=== PATIENT | male | born 1995 ===

== ENCOUNTER 2020-02-02 19:16 | Emergency (ER) | payer BC ==
[2020-02-02] MEDS ORDERED: LIDOCAINE 1% MPF 5 ML VIAL ONE (19:41)
--- NOTE | 2020-02-02 19:51 | ER ---
Nurse's Notes [facility] Name: Mario Swartz Age: 24 yrs Sex: Male : 1995 Arrival Date: 02/02/2020 Time: 19:17 Bed 20 Private MD: Diagnosis: Laceration left forearm Presentation: 02/01 19:22 Chief complaint: Patient states: Lac on L forearm by a knife accidentally. Bleeding ca1 controlled. Coronavirus screen: Client denies travel out of the [place] in the last 14 days. At this time, the client does not indicate any symptoms associated with coronavirus-19. Ebola Screen: Patient negative for fever greater than or equal to 101.5 degrees Fahrenheit, and additional compatible Ebola Virus Disease symptoms Patient denies exposure to infectious person. Patient denies travel to an Ebola-affected area in the 21 days before illness onset. No symptoms or risks identified at this time. Complicating Factors: There are no complicating factors for this patient. Initial Sepsis Screen: Does the patient meet any 2 criteria? No. Patient's initial sepsis screen is negative. Does the patient have a suspected source of infection? No. Patient's initial sepsis screen is negative. Risk Assessment: Do you want to hurt yourself or someone else? Patient reports no desire to harm self or others. Onset of symptoms was February 02, 2020. 19:22 Method Of Arrival: Ambulatory ca1 19:22 Acuity: JAEL 4 ca1 Triage Assessment: 19:24 General: Appears in no apparent distress. comfortable, Behavior is calm, cooperative, ca1 appropriate for age. Pain: Complains of pain in dorsal aspect of left forearm. Neuro: Level of Consciousness is awake, alert, obeys commands, Oriented to person, place, time, situation. Derm: Skin is healthy with good turgor, Skin is pink, warm \T\ dry. Musculoskeletal: Circulation, motion, and sensation intact. Capillary refill < 3 seconds. Injury Description: Laceration sustained to dorsal aspect of left forearm is clean, 0.5 to 2.5 cm long, bleeding moderately, was sustained less than 30 minutes ago. is bleeding no active bleeding noted. Historical: - Allergies: 19:24 No Known Allergies; ca1 - Home Meds: 19:24 None [Active]; ca1 - PMHx: 19:24 None; ca1 - PSHx: 19:24 Tonsillectomy; ca1 - Immunization history:: Adult Immunizations up to date, Last tetanus immunization: < 5 years ago last 2019. - Social history:: Smoking status: Patient reports use of chewing tobacco. Screenin:25 Abuse screen: Denies threats or abuse. Denies injuries from another. Nutritional ca1 screening: No deficits noted. Tuberculosis screening: No symptoms or risk factors identified. Fall Risk None identified. Assessment: 19:25 Reassessment: see triage notes. Injury Description: Laceration. ca1 19:25 Injury Description: Laceration sustained to dorsal aspect of left forearm is clean, 0.5 rr5 to 2.5 cm long, not bleeding. 20:10 Reassessment: Patient appears in no apparent distress at this time. Patient is alert, rr5 oriented x 3, equal unlabored respirations, skin warm/dry/pink. discharge instruction given and explained without complaints made. Vital Signs: 19:22 BP 135 / 100; Pulse 107; Resp 16 S; Temp 98.4(TE); Pulse Ox 99% on R/A; Weight 95.25 kg ca1 (R); Height 5 ft. 11 in. (180.34 cm) (R); 20:09 BP 122 / 87; Pulse 95; Resp 17; Pulse Ox 99% ; rr5 19:22 Body Mass Index 29.29 (95.25 kg, 180.34 cm) ca1 ED Course: 19:17 Patient arrived in ED. bp1 19:19 Spike José MD is Attending Physician. pkl 19:22 Cindy Amezcua, WIN is Primary Nurse. ca1 19:23 Triage completed. ca1 19:24 Arm band placed on right wrist. ca1 19:25 Patient has correct armband on for positive identification. Call light in reach. Side ca1 rails up X 1. Pulse ox on. NIBP on. Warm blanket given. 19:26 Patient did not have IV access during this emergency room visit. ca1 19:40 Assist provider with laceration repair on dorsal aspect of left forearm that was 2.5 rr5 cm. or less using sutures. Set up tray. Performed by Spike José MD Dressed with 4X4s, Kerlix, Neosporin, Patient tolerated well. Administered Medications: 19:39 Drug: Lidocaine (1 %) 5 mg {Note: given by dr. josé.} Route: Infiltration; rr5 20:11 Follow up: Response: No adverse reaction rr5 Outcome: 19:51 Discharge ordered by . rashid 20:09 Discharged to home ambulatory, with friend. rr5 20:09 Condition: stable 20:09 Discharge instructions given to patient, Instructed on discharge instructions, follow up and referral plans. Demonstrated understanding of instructions, follow-up care. 20:11 Patient left the ED. rr5 Signatures: Spike José MD MD pkl Roque, Raymond RN RN rr5 Cindy Amezcua RN RN ca1 Carolyn Britt bp1
--- NOTE | 2020-02-02 19:51 | EDPHYS ---
Physician Documentation [facility] Name: Mario Swartz Age: 24 yrs Sex: Male : 1995 Arrival Date: 02/02/2020 Time: 19:17 Bed 20 Private MD: ED Physician Spike José HPI: 02/01 19:42 This 24 yrs old Male presents to ER via Ambulatory with complaints of Laceration To Arm.pkl 19:42 The patient or guardian complains of a laceration, 1.5 cm(s), clean. The complaints pkl affect the left forearm. Context: resulted from cut with knife ( accidental ). Onset: The symptoms/episode began/occurred just prior to arrival. Associated signs and symptoms: The patient has no apparent associated signs or symptoms. Historical: - Allergies: 19:24 No Known Allergies; ca1 - Home Meds: 19:24 None [Active]; ca1 - PMHx: 19:24 None; ca1 - PSHx: 19:24 Tonsillectomy; ca1 - Immunization history:: Adult Immunizations up to date, Last tetanus immunization: < 5 years ago last 2018. - Social history:: Smoking status: Patient reports use of chewing tobacco. ROS: 19:42 Eyes: Negative for injury, pain, redness, and discharge, ENT: Negative for injury, pkl pain, and discharge, Neck: Negative for injury, pain, and swelling, Cardiovascular: Negative for chest pain, palpitations, and edema, Respiratory: Negative for shortness of breath, cough, wheezing, and pleuritic chest pain, Abdomen/GI: Negative for abdominal pain, nausea, vomiting, diarrhea, and constipation, Back: Negative for injury and pain, : Negative for injury, bleeding, discharge, and swelling, Neuro: Negative for headache, weakness, numbness, tingling, and seizure. 19:42 MS/extremity: Positive for laceration, of the left forearm. Exam: 19:42 Head/Face: Normocephalic, atraumatic. Eyes: Pupils equal round and reactive to light, pkl extra-ocular motions intact. Lids and lashes normal. Conjunctiva and sclera are non-icteric and not injected. Cornea within normal limits. Periorbital areas with no swelling, redness, or edema. ENT: Nares patent. No nasal discharge, no septal abnormalities noted. Tympanic membranes are normal and external auditory canals are clear. Oropharynx with no redness, swelling, or masses, exudates, or evidence of obstruction, uvula midline. Mucous membranes moist. Neck: Trachea midline, no thyromegaly or masses palpated, and no cervical lymphadenopathy. Supple, full range of motion without nuchal rigidity, or vertebral point tenderness. No Meningismus. Chest/axilla: Normal chest wall appearance and motion. Nontender with no deformity. No lesions are appreciated. Cardiovascular: Regular rate and rhythm with a normal S1 and S2. No gallops, murmurs, or rubs. Normal PMI, no JVD. No pulse deficits. Respiratory: Lungs have equal breath sounds bilaterally, clear to auscultation and percussion. No rales, rhonchi or wheezes noted. No increased work of breathing, no retractions or nasal flaring. Abdomen/GI: Soft, non-tender, with normal bowel sounds. No distension or tympany. No guarding or rebound. No evidence of tenderness throughout. Back: No spinal tenderness. No costovertebral tenderness. Full range of motion. Neuro: Awake and alert, GCS 15, oriented to person, place, time, and situation. Cranial nerves II-XII grossly intact. Motor strength 5/5 in all extremities. Sensory grossly intact. Cerebellar exam normal. Normal gait. 19:42 Musculoskeletal/extremity: Extremities: grossly normal except: noted in the left forearm: laceration, ROM: intact in all extremities, Pulses: are normal with no appreciated deficits, Sensation intact. Vital Signs: 19:22 BP 135 / 100; Pulse 107; Resp 16 S; Temp 98.4(TE); Pulse Ox 99% on R/A; Weight 95.25 kg ca1 (R); Height 5 ft. 11 in. (180.34 cm) (R); 20:09 BP 122 / 87; Pulse 95; Resp 17; Pulse Ox 99% ; rr5 19:22 Body Mass Index 29.29 (95.25 kg, 180.34 cm) ca1 Laceration: 19:42 Wound Repair of 1.5cm ( 0.6in ) subcutaneous laceration to left forearm. Minimal pkl bleeding noted.. Distal neuro/vascular/tendon intact. Anesthesia: Local anesthetic administered with 2 mls of 1% lidocaine. Wound prep: Extensive cleansing by me. Skin closed with 2 4-0 Prolene using simple sutures and sterile technique. Dressed with Neosporin, pressure dressing. Patient tolerated well. MDM: 19:19 Patient medically screened. pkl 19:42 Data reviewed: vital signs, nurses notes. pkl 02/01 19:39 Order name: Suture Tray at Bedside; Complete Time: 19:40 rr5 02/01 19:40 Order name: Prolene, Sutures; Complete Time: 19:40 rr5 Administered Medications: 19:39 Drug: Lidocaine (1 %) 5 mg {Note: given by dr. josé.} Route: Infiltration; rr5 20:11 Follow up: Response: No adverse reaction rr5 Disposition: 02/02/20 19:51 Discharged to Home. Impression: Laceration left forearm. - Condition is Stable. - Medication Reconciliation Form, Thank You Letter, Antibiotic Education, Prescription Opioid Use, Work release form form. - Follow up: Private Physician; When: 1 week; Reason: Wound Recheck, Staple/Suture removal, Re-evaluation by your physician. - Problem is new. - Symptoms have improved. Signatures: Spike José MD MD pkl Lan Mendez RN RN rr5 Cindy Amezcua RN RN ca1 Corrections: (The following items were deleted from the chart) 20:11 19:51 02/02/2020 19:51 Discharged to Home. Impression: Laceration left forearm. rr5 Condition is Stable. Forms are Medication Reconciliation Form, Thank You Letter, Antibiotic Education, Prescription Opioid Use. Follow up: Private Physician; When: 1 week; Reason: Wound Recheck, Staple/Suture removal, Re-evaluation by your physician. Problem is new. Symptoms have improved. pkl
[2020-02-02 20:16] VITALS: TEMP 98.4; O2SAT 99
[2020-02-02 20:17] VITALS: BP 122/87
== END 2020-02-02 20:11 | disposition home or self-care (01) ==
LOC: ER 19:16
PROC: 0JQH0ZZ Repair Left Lower Arm Subcutaneous Tissue and Fascia, Open Approach (ICD-10-PCS; principal; 2020-02-02)
DX: S51.812A Laceration without foreign body of left forearm, initial encounter (principal); W26.0XXA Contact with knife, initial encounter; Y93.9 Activity, unspecified; Y92.9 Unspecified place or not applicable; F17.220 Nicotine dependence, chewing tobacco, uncomplicated
CPT/HCPCS: 99283

== ENCOUNTER 2020-02-11 18:11 | Emergency (ER) | payer BC ==
--- NOTE | 2020-02-11 18:28 | ER ---
Nurse's Notes [facility] Name: Mario Swartz Age: 24 yrs Sex: Male : 1995 Arrival Date: 02/11/2020 Time: 18:13 Bed 16 Private MD: Diagnosis: Encounter for removal of sutures Presentation: 02/10 18:18 Chief complaint: Patient states: For suture removal. Lac repair on L forearm done on ca1 02/03/2020, 2 stitches. Appears dry, intact and healing well. Coronavirus screen: Client denies travel out of the [place] in the last 14 days. At this time, the client does not indicate any symptoms associated with coronavirus-19. Ebola Screen: Patient negative for fever greater than or equal to 101.5 degrees Fahrenheit, and additional compatible Ebola Virus Disease symptoms Patient denies exposure to infectious person. Patient denies travel to an Ebola-affected area in the 21 days before illness onset. No symptoms or risks identified at this time. Initial Sepsis Screen: Does the patient meet any 2 criteria? No. Patient's initial sepsis screen is negative. Does the patient have a suspected source of infection? No. Patient's initial sepsis screen is negative. Risk Assessment: Do you want to hurt yourself or someone else? Patient reports no desire to harm self or others. Onset of symptoms was February 11, 2020. 18:18 Method Of Arrival: Ambulatory ca1 18:18 Acuity: JAEL 5 ca1 Historical: - Allergies: 18:21 No Known Allergies; ca1 - Home Meds: 18:21 Omeprazole Oral [Active]; ca1 - PMHx: 18:21 None; ca1 - PSHx: 18:21 Tonsillectomy; ca1 - Immunization history:: Adult Immunizations up to date. - Social history:: Smoking status: Patient denies any tobacco usage or history of. Screenin:22 Abuse screen: Denies threats or abuse. Nutritional screening: No deficits noted. tw2 Tuberculosis screening: No symptoms or risk factors identified. Fall Risk None identified. Assessment: 18:24 General: Appears in no apparent distress. comfortable, Behavior is calm, cooperative, ca1 appropriate for age. Pain: Denies pain. Neuro: Level of Consciousness is awake, alert, obeys commands, Oriented to person, place, time, situation. Derm: Skin is intact, is healthy with good turgor, Skin is pink, warm \T\ dry. Wound noted Other: Lac repair on L inner forearm, 2 stitches. Appears dry, healing well. Musculoskeletal: Circulation, motion, and sensation intact. Capillary refill < 3 seconds. Vital Signs: 18:18 BP 115 / 73; Pulse 98; Resp 18 S; Temp 97.8(TE); Pulse Ox 99% on R/A; Weight 95.25 kg ca1 (R); Height 5 ft. 11 in. (180.34 cm); Pain 0/10; 18:18 Body Mass Index 29.29 (95.25 kg, 180.34 cm) ca1 ED Course: 18:13 Patient arrived in ED. ag5 18:20 Triage completed. ca1 18:21 Arm band placed on right wrist. ca1 18:22 Lara Sanchez, RN is Primary Nurse. tw2 18:22 Bed in low position. Call light in reach. tw2 18:23 Román Farias PA is PSYCHIATRICP. jr8 18:23 Diogenes Chairez MD is Attending Physician. jr8 18:24 Patient did not have IV access during this emergency room visit. Removal of Removed ca1 sutures from L forearm Suture site is well healed Patient tolerated well. 18:27 No provider procedures requiring assistance completed. ca1 Administered Medications: No medications were administered Outcome: 18:28 Discharge ordered by . jr8 18:30 Discharged to home ambulatory. ca1 18:30 Condition: stable 18:30 Discharge instructions given to patient, Instructed on discharge instructions, follow up and referral plans. Demonstrated understanding of instructions, follow-up care. 18:31 Patient left the ED. ca1 Signatures: Román Farias PA PA jr8 Lara Sanchez, WIN [place] tw2 Cindy Amezcua RN RN ca1 Monica Mondragon ag5
--- NOTE | 2020-02-11 18:28 | EDPHYS ---
Physician Documentation [facility] Name: Mario Swartz Age: 24 yrs Sex: Male : 1995 Arrival Date: 02/11/2020 Time: 18:13 Bed 16 Private MD: ED Physician Diogenes Chairez HPI: 02/10 18:28 This 24 yrs old Male presents to ER via Ambulatory with complaints of Suture Removal. jr8 18:28 The patient has sutures on the left arm. Previous treatment: The patient was initially jr8 treated 8 day(s) ago. Sutures/jaymie progress: The patient has no c/o's. The wound is well-healing with no redness, swelling, discharge, or dehiscence reported. The patient has not experienced similar symptoms in the past. The patient has not recently seen a physician. Historical: - Allergies: 18:21 No Known Allergies; ca1 - Home Meds: 18:21 Omeprazole Oral [Active]; ca1 - PMHx: 18:21 None; ca1 - PSHx: 18:21 Tonsillectomy; ca1 - Immunization history:: Adult Immunizations up to date. - Social history:: Smoking status: Patient denies any tobacco usage or history of. ROS: 18:28 Eyes: Negative for injury, pain, redness, and discharge, ENT: Negative for injury, jr8 pain, and discharge, Neck: Negative for injury, pain, and swelling, Cardiovascular: Negative for chest pain, palpitations, and edema, Respiratory: Negative for shortness of breath, cough, wheezing, and pleuritic chest pain, Abdomen/GI: Negative for abdominal pain, nausea, vomiting, diarrhea, and constipation, Back: Negative for injury and pain, MS/Extremity: Negative for injury and deformity, Neuro: Negative for headache, weakness, numbness, tingling, and seizure. Exam: 18:28 Constitutional: This is a well developed, well nourished patient who is awake, alert, jr8 and in no acute distress. Cardiovascular: Regular rate and rhythm with a normal S1 and S2. No gallops, murmurs, or rubs. Normal PMI, no JVD. No pulse deficits. Respiratory: Lungs have equal breath sounds bilaterally, clear to auscultation and percussion. No rales, rhonchi or wheezes noted. No increased work of breathing, no retractions or nasal flaring. MS/ Extremity: Pulses equal, no cyanosis. Neurovascular intact. Full, normal range of motion. Neuro: Awake and alert, GCS 15, oriented to person, place, time, and situation. Cranial nerves II-XII grossly intact. Motor strength 5/5 in all extremities. Sensory grossly intact. Cerebellar exam normal. Normal gait. 18:28 Skin: Wound recheck: Suture laceration closure: the wound is healing well, the edges are well approximated, no evidence of dehiscence, no drainage, no erythema, no swelling. Vital Signs: 18:18 BP 115 / 73; Pulse 98; Resp 18 S; Temp 97.8(TE); Pulse Ox 99% on R/A; Weight 95.25 kg ca1 (R); Height 5 ft. 11 in. (180.34 cm); Pain 0/10; 18:18 Body Mass Index 29.29 (95.25 kg, 180.34 cm) ca1 Procedures: 18:28 Suture/Staple removal: Removed 2 sutures, from left arm, site appears well healed, jr8 Patient tolerated well. MDM: 18:23 Patient medically screened. jr8 18:27 Data reviewed: vital signs, nurses notes, and as a result, I will discharge patient. jr8 Data interpreted: Pulse oximetry: on room air is 99 %. Interpretation: normal. Counseling: I had a detailed discussion with the patient and/or guardian regarding: the historical points, exam findings, and any diagnostic results supporting the discharge/admit diagnosis, the need for outpatient follow up, a family practitioner, to return to the emergency department if symptoms worsen or persist or if there are any questions or concerns that arise at home. Administered Medications: No medications were administered Disposition: 19:01 Co-signature as Attending Physician, Diogenes Chairez MD. rn Disposition: 02/11/20 18:28 Discharged to Home. Impression: Encounter for removal of sutures. - Condition is Stable. - Discharge Instructions: Suture Removal, Care After. - Medication Reconciliation Form, Thank You Letter, Antibiotic Education, Prescription Opioid Use form. - Follow up: Private Physician; When: As needed; Reason: Wound Recheck, Recheck today's complaints, Continuance of care, Re-evaluation by your physician. - Problem is new. - Symptoms have improved. Signatures: Diogenes Chairez MD MD rn Roszak Román, PA PA jr8 Cindy Amezcua RN RN ca1 Corrections: (The following items were deleted from the chart) 18:31 18:28 02/11/2020 18:28 Discharged to Home. Impression: Encounter for removal of ca1 sutures. Condition is Stable. Forms are Medication Reconciliation Form, Thank You Letter, Antibiotic Education, Prescription Opioid Use. Follow up: Private Physician; When: As needed; Reason: Wound Recheck, Recheck today's complaints, Continuance of care, Re-evaluation by your physician. Problem is new. Symptoms have improved. jr8
[2020-02-11 18:43] VITALS: BP 115/73; TEMP 97.8; O2SAT 99
== END 2020-02-11 18:31 | disposition home or self-care (01) ==
LOC: ER 18:11
DX: Z48.02 Encounter for removal of sutures (principal)
CPT/HCPCS: 99281